=== PATIENT | female | born 1955 | race American Indian/Alaskan Native ===

== ENCOUNTER 2017-10-26 09:45 | Outpatient (CLI) | payer BC ==
--- NOTE | 2017-10-26 15:23 | Mammography Report ---
BILATERAL DIGITAL SCREENING MAMMOGRAM with CAD: 10/26/17 09:45:00 CLINICAL: Routine screening. COMPARISON:04/01/16 FINDINGS: The breasts are heterogeneously dense, which may obscure small masses. No mass, architectural distortion or suspicious calcifications. IMPRESSION: No mammographic evidence of malignancy. BI-RADS CATEGORY: 1 - - Negative RECOMMENDATION: Routine mammographic screening in one year. COMMENT: Patient follow-up letters are generated by our [employer] application.
--- NOTE | 2017-10-26 17:33 | Ultrasound Report ---
FINAL REPORT PROCEDURE: US PELVIC COMPLETE TECHNIQUE: Real-time transabdominal sonography in multiple planes of the pelvis was performed. The pelvic structures, especially the ovaries were not optimally visualized. Transvaginal sonography was then performed to better evaluate the structures and/or abnormalities described below with image documentation. Limited Doppler evaluation of the ovaries/adnexa. CPT 80941 and 12581 HISTORY: Pelvic mass. COMPARISON: No prior studies are available for comparison. FINDINGS: UTERUS Hysterectomy. RIGHT Ovary: 3.1 x 0.9 x 2.6 cm. Appearance: Normal flow. LEFT Ovary: Not seen. Pelvic fluid: None. Other: None. IMPRESSION: Hysterectomy. Left ovary not seen. No mass seen in the region of the left adnexa. Consider CT scan if there is continued clinical concern for left pelvic mass.
--- NOTE | 2017-10-26 17:34 | Ultrasound Report ---
FINAL REPORT PROCEDURE: US PELVIC COMPLETE TECHNIQUE: Real-time transabdominal sonography in multiple planes of the pelvis was performed. The pelvic structures, especially the ovaries were not optimally visualized. Transvaginal sonography was then performed to better evaluate the structures and/or abnormalities described below with image documentation. Limited Doppler evaluation of the ovaries/adnexa. CPT 89708 and 68964 HISTORY: Pelvic mass. COMPARISON: No prior studies are available for comparison. FINDINGS: UTERUS Hysterectomy. RIGHT Ovary: 3.1 x 0.9 x 2.6 cm. Appearance: Normal flow. LEFT Ovary: Not seen. Pelvic fluid: None. Other: None. IMPRESSION: Hysterectomy. Left ovary not seen. No mass seen in the region of the left adnexa. Consider CT scan if there is continued clinical concern for left pelvic mass.
== END 2017-10-26 09:46 | disposition home or self-care (01) ==
LOC: US 09:45
PROVIDERS: ATTEND Obstetrics & Gynecology
DX: Z12.31 Encounter for screening mammogram for malignant neoplasm of breast (principal); R19.04 Left lower quadrant abdominal swelling, mass and lump; Z90.710 Acquired absence of both cervix and uterus
CPT/HCPCS: 76830; 76856; G0202; 77067

== ENCOUNTER 2017-12-27 08:40 | Day surgery (SDC) | payer BC ==
[2017-12-27] MEDS ORDERED: WATER FOR IRRIG STERILE ONE (09:22)
[2017-12-27] MEDS ORDERED: WATER FOR IRRIG STERILE IR ONE (09:22)
--- NOTE | 2017-12-27 09:31 | Anesthesia Consultation ---
Anesthesia Consult and Med Hx Date of service: 12/27/17 - Airway Anesthetic Teeth Evaluation: Good ROM Head & Neck: Adequate Mental/Hyoid Distance: Adequate Mallampati Class: Class III Intubation Access Assessment: Probably Good - Pulmonary Exam CTA: Yes - Cardiac Exam Cardiac Exam: No Murmur (MVP) - Pre-Operative Health Status ASA Pre-Surgery Classification: ASA1 Proposed Anesthetic Plan: MAC - Pulmonary Hx Smoking: No Hx Asthma: No Hx Respiratory Symptoms: No SOB: No COPD: No Home Oxygen Therapy: No Hx Pneumonia: No Hx Sleep Apnea: No - Cardiovascular System Hx Hypertension: No Hx Coronary Artery Disease: No Hx Heart Attack/AMI: No Hx Angina: No Hx Percutaneous Transluminal Coronary Angioplasty (PTCA): No Hx Cardia Arrhythmia: No Hx Pacemaker: No Hx Internal Defibrillator: No Hx Valvular Heart Disease: No Hx Heart Murmur: Yes Hx Peripheral Vascular Disease: No - Central Nervous System Hx Neuromuscular Disorder: No Hx Seizures: No CVA: No Hx Back Pain: No Hx Psychiatric Problems: No - Gastrointestinal Hx Ulcer: No Hx Gastroesophageal Reflux Disease: No - Endocrine Hx Renal Disease: No Hx End Stage Renal Disease: No Hx Cirrhosis: No Hx Liver Disease: No Hx Insulin Dependent Diabetes: No Hx Non-Insulin Dependent Diabetes: No Hx Thyroid Disease: No Hx Hypothyroidism: No Hx Hyperthyroidism: No - Hematic Hx Anemia: No Hx Sickle Cell Disease: No - Other Systems Hx Alcohol Use: No Hx Substance Use: No Hx Cancer: No Hx Obesity: No
--- NOTE | 2017-12-27 09:32 | Anesthesia Day of Surgery ---
Anesthesia Day of Surgery - Day of Surgery Patient Examined: Yes Patient H&P Reviewed: Yes Patient is NPO: Yes Beta Blockers: No Cardiac Clearance: No (NA) Pulmonary Clearance: No (NA)
[2017-12-27] MEDS ORDERED: NACL 0.9% 1000 ML 1,000 ML IV SCH (10:00)
[2017-12-27] MEDS ORDERED: DIPRIVAN 10 MG/ML IV ONE ×2 (11:01)
[2017-12-27] MEDS ORDERED: XYLOCAINE 2% INFILTRATI ONE (11:02)
--- NOTE | 2017-12-27 12:29 | Short Stay Summary ---
Short Stay Documentation Date of service: 12/27/17 Narrative H&P: Pt here for screening colonoscopy. BMs regular, no abd pain, GI bleed, weight loss. - History Past Medical History: No medical history Past Surgical History: hysterectomy Social history: no smoking, no alcohol abuse - Allergies and Medications Current Medications: Allergies No Known Allergies Allergy (Verified 12/22/17 13:56) Home Medications Medication Instructions Recorded Confirmed Last Taken Type No Known Home Medications [No 12/22/17 12/22/17 Unknown History Reported Home Medications] Active Medications Sodium Chloride (Nacl 0.9% 1000 Ml) 1,000 mls @ 50 mls/hr IV DIRECT RANDY Last Admin: 12/27/17 09:33 Dose: 50 mls/hr - Physical exam General appearance: no acute distress HEENT: PERRLA, EOMI Lungs: Clear to auscultation Heart: Regular rate, Normal S1, Normal S2 Gastrointestinal: normal, normoactive bowel sounds - Brief post op/procedure progress note Date of procedure: 12/27/17 Pre-op diagnosis: Screening Post-op diagnosis: other (Colon polyps, diverticulosis) Procedure: Colonoscopy with hot biopsy polypectomy Anesthesia: MAC Findings: 1. Asc colon polyp - hot snared. 2. Splenic flexure polyp - hot snared. 3. Diverticulosis throughout the colon. 4. Hemorrhoids. Surgeon: WARNER PRADO Estimated blood loss: none Pathology: list (1. Ascending colon polyp, 2. Splenic flexure polyp) Specimen disposition: to lab Condition: stable Short Stay Discharge Plan Activity: no restrictions Diet: regular Follow up with: NII BENNETT MD [Primary Care Provider] - 7 Days
--- NOTE | 2017-12-27 13:02 | Operative Report ---
PROCEDURE PERFORMED: Colonoscopy with hot snare polypectomy. PREOPERATIVE DIAGNOSIS: Screening. POSTOPERATIVE DIAGNOSES: Colon polyps and diverticulosis. SEDATION: MAC by Anesthesia. HISTORY: The patient is a 62-year-old woman who presents for screening colonoscopy. Procedure, indications, risks, and benefits were explained and consent was obtained. The patient was placed in left lateral decubitus position and sedated. [employer] video colonoscope was passed through the rectum after digital examination and passed with moderate difficulty to the cecum, which was identified by the ileocecal valve and the appendiceal orifice. Scope was then gradually withdrawn with close inspection of the mucosa. Prep was good. FINDINGS: 1. A 5 mm proximal ascending colon polyp -- removed with hot snare polypectomy. This was sessile. 2. An 8 mm sessile splenic flexure polyp -- removed with hot snare polypectomy. 3. Moderate diverticulosis noted scattered throughout the colon, but especially in the ascending colon and the sigmoid colon. 4. Moderate hemorrhoids on retroflexion. 5. Remainder of visualized colonic mucosa is normal appearing with no evidence of mass lesions, vascular lesions, or inflammation. The patient tolerated the procedure well without immediate complication. IMPRESSION: 1. Diverticulosis. 2. Colon polyps -- removed with hot snare polypectomy. 3. Hemorrhoids. PLAN: 1. Follow up biopsies. 2. Repeat colonoscopy in 5 years if polyps are adenomatous. [facility]# [id number] HRC/NTS
[2017-12-27 13:24] VITALS: BP 146/80
== END 2017-12-27 08:41 | disposition home or self-care (01) ==
LOC: GIO 08:40
PROVIDERS: ATTEND Internal Medicine Gastroenterology
DX: Z12.11 Encounter for screening for malignant neoplasm of colon (principal); D12.2 Benign neoplasm of ascending colon; D12.3 Benign neoplasm of transverse colon; K57.30 Diverticulosis of large intestine without perforation or abscess without bleeding; K64.8 Other hemorrhoids; Z90.710 Acquired absence of both cervix and uterus
CPT/HCPCS: 45385; 88305; J2704; J7030

== ENCOUNTER 2018-03-17 12:54 | Outpatient (CLI) | payer BC ==
--- NOTE | 2018-03-18 09:12 | XRay Report ---
BILATERAL FEET RADIOGRAPHS INDICATION: Other hammer toes, acquired unspecified foot. COMPARISON: None similar. FINDINGS: AP, lateral and oblique radiographs of both feet demonstrate grossly intact bones, joints and soft tissues. Calcaneal degenerative spurring noted, dorsal more than plantar. CONCLUSION: No acute radiographic abnormality, as described. Thank you for the opportunity to participate in this patient's care.
== END 2018-03-17 12:55 | disposition home or self-care (01) ==
LOC: XRAY 12:54
PROVIDERS: ATTEND Podiatrist Foot & Ankle Surgery
DX: M20.40 Other hammer toe(s) (acquired), unspecified foot (principal); M77.32 Calcaneal spur, left foot; M77.31 Calcaneal spur, right foot

== ENCOUNTER 2018-05-29 11:21 | Outpatient (CLI) | payer BC ==
[2018-05-29 12:19] LABS: Hematocrit 38.1 % (30.3-42.9); Mean Corpuscular HGB Conc 31 % (30-34); Mean Corpuscular Volume 72 fl (79-97); Platelet Count 217 K/mm3 (140-440); Red Blood Count 5.27 M/mm3 (3.65-5.03); Red Cell Distribution Width 15.3 % (13.2-15.2)
[2018-05-29 12:24] LABS: Mean Corpuscular Hemoglobin 23 pg (28-32)
[2018-05-29 13:15] LABS: Alanine Aminotransferase 13 units/L (7-56); BUN/Creatinine Ratio 24; Blood Urea Nitrogen 12 mg/dL (7-17); Calcium 9.5 mg/dL (8.4-10.2); Chol/HDL Ratio 2.85 %; HDL Cholesterol 48 mg/dL (40-59); Hemolysis Index 2; LDL Cholesterol,Direct 87 mg/dL (50-130)
== END 2018-05-29 11:22 | disposition home or self-care (01) ==
LOC: LAB 11:21
PROVIDERS: ATTEND Obstetrics & Gynecology
DX: Z13.1 Encounter for screening for diabetes mellitus (principal); M19.90 Unspecified osteoarthritis, unspecified site; Z90.710 Acquired absence of both cervix and uterus
CPT/HCPCS: 36415; 80053; 80061; 82306; 83036; 84443; 85027

== ENCOUNTER 2019-01-24 12:44 | Outpatient (CLI) | payer BC ==
--- NOTE | 2019-01-24 13:50 | XRay Report ---
CERVICAL SPINE RADIOGRAPHS INDICATION: Cervicalgia. COMPARISON: None similar. FINDINGS: AP, lateral, oblique, open-mouth and swimmer's view to evaluate the cervical spine, 6 images demonstrate normal image dens with symmetric lateral masses. Few small radiopaque dental fillings. Intact craniocervical articulation on the lateral view with visualization up to C7-T1 disc. Multilevel degenerative spurring noted from C3 inferiorly with greatest bridging anteriorly from C4-C7. Bilateral C2-C3 and C3-C4 neural foraminal narrowing also suspected. Grossly preserved disc heights. Osteopenia/osteoporosis. Normal prevertebral soft tissues and airway. Approximately 4 mm right apical calcified granuloma. Thoracic spondylosis as well. CONCLUSION: Various degenerative changes noted, as detailed above. Thank you for the opportunity to participate in this patient's care.
== END 2019-01-24 12:45 | disposition home or self-care (01) ==
LOC: XRAY 12:44
PROVIDERS: ATTEND Internal Medicine
DX: M47.812 Spondylosis without myelopathy or radiculopathy, cervical region (principal); M19.90 Unspecified osteoarthritis, unspecified site; Z90.710 Acquired absence of both cervix and uterus
CPT/HCPCS: 72050

== ENCOUNTER 2020-08-26 14:18 | Outpatient (CLI) | payer BC ==
--- NOTE | 2020-08-26 16:15 | Ultrasound Report ---
BILATERAL DIGITAL DIAGNOSTIC MAMMOGRAM WITH CAD 08/26/2020 RIGHT LIMITED BREAST ULTRASOUND INDICATION: UNSPECIFIED LUMP IN RIGHT BREAST TECHNIQUE: Digital bilateral mammographic imaging was performed. Spot compression views were obtaine d. Limited ultrasound was performed. This examination was interpreted with the benefit of Computer- ded Detection (CAD) analysis. COMPARISON: 12/12/2014 through 10/26/2017. FINDINGS: Breast Density: The breasts are heterogeneously dense, which may obscure small masses. MAMMOGRAPHIC FINDINGS: There is no evidence of dominant mass, suspicious calcifications or architectu ral distortion in the left breast. There is a 1.8 cm ill-defined mass in the right superior breast ne ar the 12:00 position in the posterior depth at the site of the palpable abnormality. ULTRASOUND FINDINGS: Targeted ultrasound evaluation was performed of the area of interest. There is a 2 cm irregular hypoechoic solid mass at the 12:00 position 6 cm from the nipple which corresponds to the site of the palpable and mammographic abnormalities. There is an enlarged lymph node in the right axilla. The lymph node measures 1.5 cm short axis and merchant s a significantly thickened cortex with an absent fatty hilum. IMPRESSION: 1. 2 cm irregular solid mass in the right superior breast at the site of the palpable abnormality is highly suggestive of malignancy. 2. Enlarged right axillary lymph node is suspicious for metastatic disease. Follow up recommendation: Routine yearly A "normal" or negative report should not discourage follow up or biopsy of a clinically significant f inding. A written summary of these findings will be mailed to the patient. The patient will be entered into a mammography reporting system which will generate a reminder letter for the patient's next appointmen t at the appropriate interval. According to the [employer], yearly mammograms are recommended starting at age 40 and continuing as long as a woman is in good health. Breast MRI is recommended for women with an boyd roximately 20-25% or greater lifetime risk of breast cancer, including women with a strong family his tory of breast or ovarian cancer and women who have been treated for Hodgkin's disease. Signer Name: Valerio Alex MD Signed: 08/26/2020 4:10 PM Workstation Name: [id number]
== END 2020-08-26 14:19 | disposition home or self-care (01) ==
LOC: SPVWC 14:18
PROVIDERS: ATTEND Surgery
DX: N63.41 Unspecified lump in right breast, subareolar (principal); N64.4 Mastodynia; R59.0 Localized enlarged lymph nodes
CPT/HCPCS: 77066

== ENCOUNTER 2020-09-03 10:03 | Outpatient (CLI) | payer BC ==
--- NOTE | 2020-09-03 11:57 | Mammography Report ---
RIGHT DIAGNOSTIC MAMMOGRAM INDICATION: Right breast mass status post ultrasound-guided biopsy. COMPARISON: 08/26/2020. FINDINGS: Right breast CC and LM mammograms were obtained. These document location of a U-shaped biop sy marker at the site of previously noted mammographic mass. IMPRESSION: Right breast mammograms documenting location of U shaped biopsy marker at the site of previously note d right breast 12:00 mass. BI-RADS Category 4: Suspicious for Malignancy. Signer Name: David Santoro MD Signed: 09/03/2020 11:52 AM Workstation Name: [id number]
--- NOTE | 2020-09-04 09:00 | Ultrasound Report ---
ULTRASOUND-GUIDED CORE NEEDLE BIOPSY Right BREAST WITH CLIP PLACEMENT INDICATION: Right breast mass FINDINGS: Informed consent was obtained. The mass in the right breast at the 12:00 position, 6 cm from the nipp le, was identified with ultrasound. The overlying skin was cleansed with chloro prep and local anesth esia was obtained with a 1% lidocaine solution. Under ultrasound guidance a 14-gauge spring loaded co re biopsy needle was advanced to the lesion. A total of 4 core samples were obtained. A biopsy marker was placed to rosy the site of the biopsy. Specimen samples were placed in formalin and sent to path ogy for analysis. Patient tolerated the procedure well and no immediate complications were identified. IMPRESSION: Technically successful ultrasound-guided core biopsy of right breast mass at the 12:00 position with placement of a U-shaped biopsy marker. An addendum will be added to this report once pathology results are available. Signer Name: David Santoro MD Signed: 09/03/2020 11:50 AM Workstation Name: [id number]
--- NOTE | 2020-09-04 09:00 | Ultrasound Report ---
ULTRASOUND-GUIDED CORE NEEDLE BIOPSY Right AXILLARY NODE WITH CLIP PLACEMENT INDICATION: Abnormal right axillary lymph node. COMPARISON: 08/26/2020. FINDINGS: Informed consent was obtained. The abnormal lymph node in the right axilla was identified with ultras ound. The overlying skin was cleansed with chloro prep and local anesthesia was obtained with a 1% li docaine solution. Under ultrasound guidance an 18-gauge spring loaded core biopsy needle was advanced to the lesion. A total of 3 core samples were obtained. A U-shaped biopsy biopsy marker was placed t o rosy the site of the biopsy. Specimen samples were placed in formalin and sent to pathology for lenin lysis. Patient tolerated the procedure well and no immediate complications were identified. The biopsy marke r appears appropriately positioned under ultrasound. IMPRESSION: Technically successful ultrasound guided core biopsy of right axillary lymph node with accurate place ment of a U-shaped biopsy marker. An addendum will be added to this report once pathology results are available. Signer Name: David Santoro MD Signed: 09/03/2020 12:04 PM Workstation Name: [id number]
== END 2020-09-03 10:04 | disposition home or self-care (01) ==
LOC: SPVWC 10:03
PROVIDERS: ATTEND Surgery
DX: N63.12 Unspecified lump in the right breast, upper inner quadrant (principal); I89.8 Other specified noninfective disorders of lymphatic vessels and lymph nodes; M19.90 Unspecified osteoarthritis, unspecified site; Z98.890 Other specified postprocedural states; Z90.710 Acquired absence of both cervix and uterus
CPT/HCPCS: 38505; 76942; 88305; 88341; 88342

== ENCOUNTER 2020-09-17 14:05 | Outpatient (CLI) | payer BC ==
[2020-09-17 15:03] LABS: Basophils % (Auto) 0.5 % (0.0-1.8); Eosinophils # (Auto) 0.1 K/mm3 (0.0-0.4); Eosinophils % (Auto) 2.2 % (0.0-4.3); Hematocrit 37.7 % (30.3-42.9); Hemoglobin 11.6 gm/dl (10.1-14.3); Lymphocytes # (Auto) 1.5 K/mm3 (1.2-5.4); Lymphocytes % (Auto) 24.5 % (13.4-35.0); Mean Corpuscular HGB Conc 31 % (30-34); Mean Corpuscular Volume 73 fl (79-97); Monocytes # (Auto) 0.6 K/mm3 (0.0-0.8); Monocytes % (Auto) 9.7 % (0.0-7.3); Platelet Count 209 K/mm3 (140-440); Red Blood Count 5.17 M/mm3 (3.65-5.03); Red Cell Distribution Width 15.1 % (13.2-15.2)
[2020-09-17 15:13] LABS: Alanine Aminotransferase 16 units/L (7-56); Blood Urea Nitrogen 11 mg/dL (7-17); Calcium 9.8 mg/dL (8.4-10.2); Hemolysis Index 25
[2020-09-17 15:20] LABS: BUN/Creatinine Ratio 18
== END 2020-09-17 14:06 | disposition home or self-care (01) ==
LOC: LAB 14:05
PROVIDERS: ATTEND Internal Medicine Hematology & Oncology
DX: C50.411 Malignant neoplasm of upper-outer quadrant of right female breast (principal)
CPT/HCPCS: 36415; 80053; 85025; 86300

== ENCOUNTER 2020-09-24 08:46 | Outpatient (CLI) | payer BC ==
--- NOTE | 2020-09-24 10:23 | Magnetic Resonance Report ---
Bilateral breast MR without and with contrast. History: Recently diagnosed right breast cancer with armando disease in the right axilla. Assess extent of disease. Comparison: 08/26/2020, 09/03/2020. Technique: Multiplanar multisequence MR images of the breast were obtained before and after the intra venous administration of 16 mL of MultiHance intravenous contrast. Post processing analysis and revie w was performed on a separate computer workstation. Findings: Breast composition is heterogenously dense. There is mild background parenchymal enhancement bilatera lly. RIGHT BREAST: Located within the posterior right breast at the 12:00 position is a 3.1 x 1.9 x 2.6 cm solid slightly lobulated enhancing mass. This represents a known biopsy-proven invasive carcinoma wi th ductal and lobular features. A biopsy marker is noted within the lateral portion of the mass. No e vidence of pectoralis muscle invasion or skin invasion. No additional suspicious findings are identi fied within the right breast. LEFT BREAST: No discrete enhancing mass, dominant focus, or other abnormal enhancement is identified within the left breast. Enlarged right axillary lymph node measures up to 2 x 1.3 cm. A biopsy marker is noted within this ly mph node which was biopsied and found to represent metastatic disease. No abnormal left axillary or i nternal mammary lymph nodes. Located within the posterior left hepatic lobe is a 1.2 cm partially circumscribed slightly lobulated T2 hyperintense lesion. This may represent a cyst, but is not fully characterized on the current exa m. There is cardiomegaly with particular enlargement of the right side of the heart. Impression: 1. Known biopsy-proven malignancy in the right breast at the 12:00 posterior position measures up to 3.1 cm on MRI with associated biopsy marker noted. No additional suspicious findings within either br east to suggest further or additional extent of disease. 2. Enlarged right axillary lymph node consistent with known biopsy-proven armando disease in the right axilla. 3. A 1.2 cm lesion within the posterior left hepatic lobe is noted. This demonstrates fluid like sig nal and may represent a cyst. It is not fully characterized on the current exam and dedicated CT live r or MRI is recommended. 4. Cardiomegaly with particular enlargement of the right side of the heart. BIRADS 6: Known biopsy proven malignancy. Signer Name: David Santoro MD Signed: 09/24/2020 10:23 AM Workstation Name: [id number]
== END 2020-09-24 08:47 | disposition home or self-care (01) ==
LOC: SPVIMAG 08:46
PROVIDERS: ATTEND Surgery
DX: C50.411 Malignant neoplasm of upper-outer quadrant of right female breast (principal); I51.7 Cardiomegaly; N63.41 Unspecified lump in right breast, subareolar
CPT/HCPCS: A9577; C8908; 77049

== ENCOUNTER 2020-09-25 08:22 | Outpatient (CLI) | payer BC, MEDICARE ==
--- NOTE | 2020-09-25 14:24 | PET Report ---
PET-CT SCAN INDICATION / CLINICAL INFORMATION: C50.411. STAGING: Initial Staging TECHNIQUE: Tumor imaging, positron emission tomography (PET) with concurrently acquired computed tomography (CT) for attenuation correction and anatomical localization; Skull Base to Mid Thigh - DOSE: 11.6 mCi F-18 FDG was administered IV per protocol in the - GLUCOSE: 85 mg/dL - UPTAKE TIME: PET scan performed approximately 60 minutes after radiotracer administration. - CT SCAN DESCRIPTION: No oral or IV contrast. All CT scans at this location are performed using CT d ose reduction for ALARA by means of automated exposure control. COMPARISON: MRI of the breasts dated 09/24/2020. FINDINGS: HEAD / NECK: No abnormal radiotracer uptake in the neck. No significant CT abnormality. CHEST: Biopsy-proven malignancy in the right breast is hypermetabolic (maximum SUV measures 4.8). Add itional biopsy proven metastatic right axillary lymph node is also hypermetabolic (maximum SUV is 7.5 ). No additional abnormalities tracer uptake in the chest. No significant CT abnormality. ABDOMEN / PELVIS: No abnormal radiotracer uptake in the abdomen. 1.2 cm posterior left hepatic lesion is not well visualized on unenhanced CT. No increased radiotracer uptake is identified in this regio n. LOWER EXTREMITIES: No abnormal radiotracer uptake in the visualized lower extremities. No significant CT abnormality. SKELETAL STRUCTURES: No hypermetabolic bone lesions. No significant CT abnormality. ADDITIONAL FINDINGS: No additional significant findings. IMPRESSION: 1. Biopsy-proven malignancy and right axillary armando metastatic disease are confirmed to be hyper met abolic. 2. Otherwise negative PET. No additional areas of radiotracer uptake identified. 3. 1.2 cm posterior left hepatic lesion is not well seen on today's study. No increased radiotracer u ptake is identified in this region, though findings in the liver may be obscured by physiologic activ ity. Further evaluation with MRI is recommended. Signer Name: Nelson Kramer MD Signed: 09/25/2020 2:19 PM Workstation Name: [email or web address]
== END 2020-09-25 08:23 | disposition home or self-care (01) ==
LOC: PET 08:22
PROVIDERS: ATTEND Internal Medicine Hematology & Oncology
DX: C50.411 Malignant neoplasm of upper-outer quadrant of right female breast (principal)
CPT/HCPCS: 78815; A9552

== ENCOUNTER 2020-10-07 07:55 | Outpatient (CLI) | payer BC, MEDICARE ==
--- NOTE | 2020-10-07 10:12 | Magnetic Resonance Report ---
MRI ABDOMEN WITHOUT AND WITH CONTRAST INDICATION / CLINICAL INFORMATION: LEFT LIVER CYST. TECHNIQUE: Multiplanar, multisequence series were obtained through the abdomen. 15 cc of MultiHance was administ ered intravenously for postcontrast imaging. COMPARISON: PET/CT dated 09/25/2020 FINDINGS: There is moderate breathing motion artifact which limits many of the sequences. LIVER: The liver is normal size, contour and signal. No significant parenchymal disease or suspicious liver lesion is identified. A 1 cm cyst is identified high in the left hepatic lobe. A 1.4 cm cyst i s seen in the inferior tip of the right hepatic lobe. GALLBLADDER: No significant abnormality. BILE DUCTS: No significant abnormality. PANCREAS: No significant abnormality. SPLEEN: No significant abnormality. ADRENALS: No significant abnormality. RIGHT KIDNEY AND URETER: No significant abnormality. LEFT KIDNEY AND URETER: A 2.8 cm simple cyst is seen at the superior pole. A 1.1 cm cyst is seen at m id pole. The left kidney and collecting system are unremarkable otherwise. STOMACH AND VISUALIZED BOWEL: No significant abnormality. PERITONEUM: No free fluid. No free air. No fluid collection. LYMPH NODES: No significant adenopathy. AORTA and ARTERIES: No significant abnormality. IVC and VEINS: No significant abnormality. ADDITIONAL FINDINGS: None. SKELETAL SYSTEM: No significant abnormality. IMPRESSION: Liver and left renal cysts as described. No acute process or evidence for metastatic disease to the abdomen. Signer Name: Bob Rausch Jr, MD Signed: 10/07/2020 10:08 AM Workstation Name: [id number]
== END 2020-10-07 07:56 | disposition home or self-care (01) ==
LOC: MRI 07:55
PROVIDERS: ATTEND Surgery
DX: N28.1 Cyst of kidney, acquired (principal); K76.89 Other specified diseases of liver; R92.8 Other abnormal and inconclusive findings on diagnostic imaging of breast
CPT/HCPCS: 74183; A9577

== ENCOUNTER 2020-10-22 06:17 | Outpatient (CLI) | payer BC, MEDICARE ==
--- NOTE | 2020-10-22 09:23 | Magnetic Resonance Report ---
MR PELVIS WITH AND WITHOUT CONTRAST HISTORY: Genetic susceptibility malignant neoplasm of ovary TECHNIQUE: Multisequence, multiplanar MRI before and after IV gadolinium. COMPARISON: PET/CT dated 09/25/2020. Pelvic ultrasound dated 10/26/2017. FINDINGS: The uterus is surgically absent. The vaginal cuff is unremarkable. I believe I see both ovaries which are normal size and contour. There is no evidence for suspicious ovarian mass, cystic disease, pelvi c adenopathy or fluid collection. The bladder and distal ureters are unremarkable. Visualized bowel l oops in the pelvis are within normal limits. Normal bone marrow signal in the visualized osseous stru ctures. No abnormal enhancement is appreciated following IV gadolinium. IMPRESSION: Hysterectomy. I believe I see both ovaries which are unremarkable. No suspicious pelvic mass or adeno aisha. Signer Name: Bob Rausch Jr, MD Signed: 10/22/2020 9:18 AM Workstation Name: [id number]
== END 2020-10-22 06:18 | disposition home or self-care (01) ==
LOC: MRI 06:17
PROVIDERS: ATTEND Obstetrics & Gynecology
DX: Z15.02 Genetic susceptibility to malignant neoplasm of ovary (principal); Z90.710 Acquired absence of both cervix and uterus
CPT/HCPCS: 72197; A9575

== ENCOUNTER 2020-11-05 09:39 | Outpatient (CLI) | payer BC, MEDICARE ==
--- NOTE | 2020-11-05 12:33 | Mammography Report ---
DEXA BONE DENSITY SCAN INDICATION: Z13.280 SCREENING FOR OSTEO. History of right breast carcinoma COMPARISON: None available. LUMBAR SPINE (L1-L4): Bone mineral density (BMD) is 0.855 g/cm2. T-score is -1.7 (standard deviations of Young Adult mean). Z-score is -0.6 (standard deviations of Age Matched mean). RIGHT FEMORAL NECK: Bone mineral density (BMD) is 0.657 g/cm2. T-score is -1.7 (standard deviations of Young Adult mean). Z-score is -0.8 (standard deviations of Age Matched mean). IMPRESSION: 1. WHO Classification: Osteopenia. Fracture Risk: Increased. Signer Name: Wanda Sparrow MD Signed: 11/05/2020 12:29 PM Workstation Name: [id number]
== END 2020-11-05 09:40 | disposition home or self-care (01) ==
LOC: MAMMO 09:39
PROVIDERS: ATTEND Internal Medicine
DX: J01.00 Acute maxillary sinusitis, unspecified (principal)
CPT/HCPCS: 77080

== ENCOUNTER 2020-12-10 09:21 | Observation (INO) | payer BC, MEDICARE ==
[2020-12-05 09:15] LABS: Hematocrit 36.3 % (30.3-42.9); Hemoglobin 11.7 gm/dl (10.1-14.3); Mean Corpuscular HGB Conc 32 % (30-34); Mean Corpuscular Volume 72 fl (79-97); Platelet Count 219 K/mm3 (140-440); Red Blood Count 5.05 M/mm3 (3.65-5.03); Red Cell Distribution Width 15.3 % (13.2-15.2)
[2020-12-05 09:27] LABS: Blood Urea Nitrogen 11 mg/dL (7-17); Calcium 9.4 mg/dL (8.4-10.2); Hemolysis Index 0
[2020-12-05 09:28] LABS: BUN/Creatinine Ratio 18
--- NOTE | 2020-12-05 10:18 | Anesthesia Consultation ---
Anesthesia Consult and Med Hx Date of service: 12/10/20 - Airway Anesthetic Teeth Evaluation: Crowns, Bridges ROM Head & Neck: Inadequate (Decreased neck ROM-? HNP) Mental/Hyoid Distance: Adequate Mallampati Class: Class II Intubation Access Assessment: Probably Good - Pre-Operative Health Status ASA Pre-Surgery Classification: ASA2 Proposed Anesthetic Plan: General Nerve Block: ES/PECS - Pulmonary Hx Smoking: No Hx Asthma: No Hx Respiratory Symptoms: No (+2FS) SOB: No COPD: No Hx Pneumonia: No Hx Sleep Apnea: No - Cardiovascular System Hx Hypertension: No (ETT 7 years ago) Hx Coronary Artery Disease: No Hx Heart Attack/AMI: No Hx Angina: No Hx Percutaneous Transluminal Coronary Angioplasty (PTCA): No Hx Cardia Arrhythmia: No Hx Pacemaker: No Hx Internal Defibrillator: No Hx Valvular Heart Disease: Yes (MVP) Hx Heart Murmur: Yes Hx Peripheral Vascular Disease: No - Central Nervous System Hx Neuromuscular Disorder: No Hx Seizures: No CVA: No Hx Back Pain: No Hx Psychiatric Problems: No - Gastrointestinal Hx Ulcer: No Hx Gastroesophageal Reflux Disease: Yes - Endocrine Hx Renal Disease: No Hx End Stage Renal Disease: No Hx Cirrhosis: No Hx Liver Disease: No Hx Insulin Dependent Diabetes: No Hx Non-Insulin Dependent Diabetes: No Hx Thyroid Disease: No Hx Hypothyroidism: No Hx Hyperthyroidism: No - Hematic Hx Anemia: No Hx Sickle Cell Disease: No - Other Systems Hx Alcohol Use: No Hx Substance Use: No Hx Cancer: Yes Hx Obesity: No
--- NOTE | 2020-12-05 12:16 | XRay Report ---
CHEST 2 VIEWS INDICATION / CLINICAL INFORMATION: Pre Operative. COMPARISON: None available. FINDINGS: SUPPORT DEVICES: None. HEART / MEDIASTINUM: No significant abnormality. LUNGS / PLEURA: No significant pulmonary or pleural abnormality. No pneumothorax. ADDITIONAL FINDINGS: No significant additional findings. IMPRESSION: No acute cardiopulmonary abnormality. Signer Name: Jalen Boss MD Signed: 12/05/2020 12:12 PM Workstation Name: [id number]
[~2020-12-10 09:21] MED LIST: ACETAMINOPHEN 325 MG TAB PO ONE; BACITRACIN 50,000 UNIT VIAL IR ONE; CELECOXIB 200 MG CAP PO NR; FAMOTIDINE 20 MG TAB PO NR; GABAPENTIN 300 MG CAP PO NR; GENTAMICIN 40 MG/ML VIAL 2 ML IV ONE; LACTATED RINGERS 1,000 ML IV SCH; MAGNESIUM OXIDE 400 MG TAB PO ONE; MIDAZOLAM 2 MG/2 ML INJ IV NR; SCOPOLAMINE TRANSDERMAL PATCH 72 HR TD NR; SODIUM CHLORIDE 0.9% IRR 1,500 ML BOTTLE IR ONE; WATER FOR IRRIG STERILE 1,500 ML BOTTLE IR ONE; ceFAZolin 1 GM VIAL IV ONE; ceFAZolin/Water 2 GM/20 ML 2 GM/20 ML SYRINGE IV NR; fentaNYL 100 MCG/2 ML INJ IV ONE
[2020-12-10] MEDS ORDERED: ACETAMINOPHEN 325 MG TAB ONE (09:41)
[2020-12-10] MEDS ORDERED: dexAMETHasone 4 MG/ML VIAL ONE (09:57)
[2020-12-10] MEDS ORDERED: SODIUM CHLORIDE P/F VIAL 10 ML 40 ML ONE (09:57)
[2020-12-10] MEDS ORDERED: BUPIVACAINE-EPINEPHRINE/PF 0.5%-1:200,000 (30 ML) VIAL INFILTRATI ONE (09:57)
[2020-12-10] MEDS ORDERED: fentaNYL 100 MCG/2 ML INJ ONE ×3 (09:57→13:22)
[2020-12-10] MEDS ORDERED: MAGNESIUM OXIDE 400 MG TAB PO ONE (09:58)
[2020-12-10] MEDS ORDERED: ceFAZolin 1 GM VIAL ONE (10:53)
[2020-12-10] MEDS ORDERED: BACITRACIN 50,000 UNIT VIAL ONE (10:53)
[2020-12-10] MEDS ORDERED: SODIUM CHLORIDE P/F VIAL 10 ML 30 ML ONE (10:54)
[2020-12-10] MEDS ORDERED: GENTAMICIN 40 MG/ML VIAL 2 ML ONE (10:54)
[2020-12-10] MEDS ORDERED: METHYLENE BLUE 50 MG/10 ML AMP ONE (10:55)
--- NOTE | 2020-12-10 11:16 | Anesthesia Day of Surgery ---
Anesthesia Day of Surgery - Day of Surgery Patient Examined: Yes Patient H&P Reviewed: Yes Patient is NPO: Yes
[2020-12-10] MEDS ORDERED: fentaNYL 100 MCG/2 ML INJ IV PRN (11:18)
[2020-12-10] MEDS ORDERED: ONDANSETRON 4 MG/2 ML INJ IV PRN ×2 (11:18→17:00)
--- NOTE | 2020-12-10 11:18 | Progress Note ---
Regional Anesthesia Block - Regional Anesthesia Block Start Time: 11:03 Stop Time: 11:12 Performed By:: LUIS ENRIQUE MENDEZ Procedure: [Bilateral] Ultrasound Guided PECS Block Pt IDd, consent obtained, time out performed. Pt on monitor + O2 via NC, VS stable, sedation given per pre-op RN. Sterile prep. Landmarks identified with ultrasound. [2]cc skin wheel with 1% lidocaine. Needle advance in plane with ultrasound. [30]cc [0.25]% bupivacaine [w/ epi] + [4]mg decadron injected incrementally with negative aspiration. Procedure repeated on opposite side. Pt tolerated procedure well, no immediate complications noted.
[2020-12-10] MEDS ORDERED: ePHEDrine SULFATE 50 MG/1 ML INJ ONE (11:27)
[2020-12-10] MEDS ORDERED: ROCURONIUM 50 MG/5 ML INJ IV ONE (11:30)
[2020-12-10] MEDS ORDERED: ONDANSETRON 4 MG/2 ML INJ ONE (11:30)
[2020-12-10] MEDS ORDERED: dexAMETHasone 20 MG/5 ML VIAL ONE (11:30)
[2020-12-10] MEDS ORDERED: GLYCOPYRROLATE 0.4 MG/2 ML INJ ONE (11:30)
[2020-12-10] MEDS ORDERED: PHENYLEPHRINE/NS 1,000 MCG/10 ML SYRINGE (OR USE) IV ONE (11:30)
[2020-12-10] MEDS ORDERED: SUCCINYLCHOLINE CHLORIDE 200 MG/10 ML INJ MDV ONE (11:30)
[2020-12-10] MEDS ORDERED: NEOSTIGMINE 10MG/10 ML INJ MDV ONE (11:30)
[2020-12-10] MEDS ORDERED: LIDOCAINE MPF (2%) 20 MG/1 ML VIAL 5 ML ONE (11:30)
[2020-12-10] MEDS ORDERED: propofoL 200 MG/20 ML VIAL IV ONE (11:31)
[2020-12-10] MEDS ORDERED: HYDROmorphone 1 MG/1 ML INJ ONE ×2 (13:24→15:59)
[2020-12-10] MEDS ORDERED: WATER FOR IRRIG STERILE 1,500 ML BOTTLE IR ONE (14:15)
--- NOTE | 2020-12-10 16:00 | Mammography Report ---
Right breast surgical excision INDICATION: Right breast malignancy.. COMPARISON: 09/03/2020. FINDINGS: Single surgical specimen demonstrates a U-shaped biopsy marker located 3.1 cm from the edge of the specimen. IMPRESSION: Single right breast surgical specimen contains a U-shaped biopsy marker. Signer Name: David Santoro MD Signed: 12/10/2020 3:55 PM Workstation Name: [id number]
--- NOTE | 2020-12-10 16:20 | Short Stay Summary ---
Short Stay Documentation Date of service: 12/10/20 - History H&P: obtained from office - Allergies and Medications Current Medications: Allergies clindamycin Adverse Reaction (Verified 12/04/20 15:30) Metallic taste Home Medications Medication Instructions Recorded Confirmed Last Taken Type Ascorbic Acid [Vitamin C] 1,000 mg PO DAILY 12/04/20 12/10/20 12/03/20 09:00 History Ergocalciferol(Vitamin D2)(Nf) 400 unit PO DAILY 12/04/20 12/10/20 12/03/20 09:00 History [Vitamin D (Nf)] Vit C/Vit D3/E/Zinc/Elderberry 1 each PO DAILY 12/04/20 12/10/20 12/03/20 09:00 History [Airborne Elderberry Gummy] Active Medications Celecoxib (Celecoxib 200 Mg Cap) 200 mg PO PREOP NR Stop: 12/10/20 17:00 Last Admin: 12/10/20 10:15 Dose: 200 mg Documented by: Famotidine (Famotidine 20 Mg Tab) 20 mg PO PREOP NR Stop: 12/10/20 17:00 Last Admin: 12/10/20 10:15 Dose: 20 mg Documented by: Fentanyl (Fentanyl 100 Mcg/2 Ml Inj) 50 mcg IV Q5MIN PRN PRN Reason: Pain , Severe (7-10) Stop: 12/11/20 11:17 Gabapentin (Gabapentin 300 Mg Cap) 300 mg PO PREOP NR Stop: 12/10/20 17:00 Last Admin: 12/10/20 10:15 Dose: 300 mg Documented by: Cefazolin Sodium (Ancef/Sterile Water 2 Gm/20 Ml) 2 gm in 20 mls @ 80 mls/hr IV PREOP NR; Protocol Stop: 12/10/20 23:59 Lactated Ringer's (Lactated Ringers) 1,000 mls @ 100 mls/hr IV DIRECT RANDY Last Admin: 12/10/20 10:00 Dose: 100 mls/hr Documented by: Midazolam HCl (Midazolam 2 Mg/2 Ml Inj) 2 mg IV PREOP NR Stop: 12/10/20 23:59 Last Admin: 12/10/20 11:03 Dose: 2 mg Documented by: Ondansetron HCl (Ondansetron 4 Mg/2 Ml Inj) 4 mg IV ONCE PRN PRN Reason: Nausea And Vomiting Scopolamine (Scopolamine Transdermal Patch 72 Hr) 1 each TD PREOP NR Stop: 12/10/20 23:59 Last Admin: 12/10/20 10:21 Dose: 1 each Documented by: - Brief post op/procedure progress note Date of procedure: 12/10/20 Pre-op diagnosis: Right breast cancer upper inner quadrant Post-op diagnosis: same Procedure: Left total mastectomy; right modified radical mastectomy Anesthesia: GETA Findings: Bilateral mastectomy; bulky right axillary lymphadenopathy Surgeon: ROBERT VALENTIN Estimated blood loss: 50-100ml Pathology: list (whitney mastectomy; right ALND) Specimen disposition: to lab Condition: stable - Disposition Condition at discharge: Good Disposition: DC/TX-02 SHRT-TRM GEN HOSP IP Short Stay Discharge Plan Activity: other (no heavy lifting) Diet: regular Wound: keep clean and dry Follow up with: ROBERT VALENTIN MD [Staff Physician] - 7 Days
[2020-12-10] MEDS ORDERED: SODIUM CHLORIDE 0.9% IRR 1,500 ML BOTTLE IR ONE (16:24)
[2020-12-10] MEDS ORDERED: GENTAMICIN 40 MG/ML VIAL 2 ML IV ONE (16:24)
[2020-12-10] MEDS ORDERED: ceFAZolin 1 GM VIAL IV ONE (16:24)
[2020-12-10] MEDS ORDERED: BACITRACIN 50,000 UNIT VIAL IR ONE (16:24)
--- NOTE | 2020-12-10 16:35 | Operative Report ---
Operative Report Operative Report: Date of Service: December 10, 2020 Preoperative diagnosis: Right breast cancer of the upper inner quadrant Postoperative diagnosis: Same Procedure: Right total mastectomy with ALND-right modified radical mastectomy and left total mastectomy Surgeon: Jody Olivier M.D. Pumping Station Supervisor: Roosevelt Dick M.D. Anesthesia: Gen. Findings: Right breast clip present within right total mastectomy; right axillary lymph node dissection with bulky right axillary lymphadenpathy Complications: None Drains: YFN drains bilaterally-placed by plastic surgery Estimated blood loss: 100 cc Disposition: Plastic surgery proceeded with bilateral tissue expanders Indications for operative procedure: This is a 65-year-old lady with stage II right breast cancer of the upper inner quadrant, [id number] ER/ID positive. Patient also RAD51 positive gene mutation. She wished to proceed with a prophylactic bilateral mastectomy. Recommendations were to proceed with an ALND given positive axillary armando metastasis; given high ER/ID positivity recommendations were to proceed with an ALND given probable poor response to neoadjuvant chemotherapy. She has met with radiation oncology and medical oncology and understands the role of possible adjuvant chemoradiation therapy pending pathology. Patient understands the role of BSO given RAD51 positive gene mutation, she met with Recovery Unit Operator oncology as well. She wished to proceed with immediate bilateral tissue splitting machine operator placement. She wished to proceed with the above procedure. Procedure in detail: The patient was taken to the operating room and was placed supine. Gen. anesthesia was administered. Patient with known malignancy right breast 12:30 position 6 cm FN of 2-3 and palpable right axillary lymph node. Bilateral chest and axillas were prepped and draped in the normal sterile operative fashion. Timeout was performed. Typical mastectomy incision markings were made. Ultrasound used as well to rosy area of known right axillary armando metastasis and location of known malignancy. Attention was taken toward the left breast first. First began raising of the superior flap to the level of the clavicle superiorly and posteriorly to the pectoralis muscle. Followed by raising of the medial flap to the level of the sternum and posteriorly to the pectoralis muscle. Followed by raising of the lateral flap to the level of the latissimus dorsi muscle and taken down posteriorly. Followed by raising of the inferior flap to the level of the inframammary fold taken posterior to the pectoralis muscle. The mastectomy/breast was removed from the pectoralis muscle without incident. The specimen was appropriately marked and sent to pathology. Hemostasis was obtained. The port was noted and unharmed. Attention was taken towards the right breast. Skin markings were made to include the area of known cancer. Breast cancer location 12:30 position 6 cm FN with palpable skin thickening. A skin incision was made with a 10 blade knife and dissection taken down to the subcutaneous tissues. First began raising of the superior flap to the level of the clavicle superiorly and posteriorly to the pectoralis muscle. Followed by raising of the medial flap to the level of the sternum and posteriorly to the pectoralis muscle. Followed by raising of the lateral flap to the level of the latissimus dorsi muscle and taken down posteriorly. Then proceeded with raising of the inferior flap to the level of the inframammary fold taken posterior to the pectoralis muscle. The mastectomy/breast was removed from the pectoralis muscle without incident. The specimen was appropriately marked and sent to radiology with findings of breast clip present and sent to pathology. Attention was then taken towards the right axilla. First began opening of the axillary fascia. The lattismus dorsi muscle was identified and followed superiorly. Then proceeded with identification of the axillary vein followed by identification of the thoracodorsal bundle and long thoracic nerve. Axillary lymph nodes were then removed from the above boundaries with the aid of the bovie cautery in a sweeping-like motion and then sent to pathology. Axillary lymph nodes from level I and II were removed. Both nerves were identified and unharmed. Bulky axillary lymphadenopathy was noted. Hemostasis was noted. The chest wall was irrigated and suctioned. Hemostasis was obtained. Plastic surgery then proceeded with placement of bilateral tissue expanders.
[2020-12-10] MEDS ORDERED: METOCLOPRAMIDE 10 MG TAB PO PRN (17:00)
[2020-12-10] MEDS ORDERED: oxyCODONE /ACETAMINOPHEN 5-325MG TAB PO PRN (17:00)
[2020-12-10] MEDS ORDERED: ACETAMINOPHEN 325 MG TAB PO PRN (17:00)
[2020-12-10] MEDS ORDERED: diphenhydrAMINE 25 MG CAP PO PRN (17:00)
[2020-12-10] MEDS ORDERED: HYDROmorphone 2 MG TAB PO PRN (17:00)
--- NOTE | 2020-12-10 18:54 | Operative Report ---
PREOPERATIVE DIAGNOSIS: Personal history of right breast cancer. POSTOPERATIVE DIAGNOSIS: Personal history of right breast cancer. PROCEDURE: Bilateral immediate breast reconstruction with Allergan Natrelle tissue expanders and FlexHD acellular dermal matrix. SURGEON: Dr. Mukesh Phan. INSURANCE EXAMINING CLERK: Dr. Dick. ESTIMATED BLOOD LOSS: 25 mL. DRAINS: YFN x 5 mL. SPECIMENS: None. COMPLICATIONS: None. INDICATIONS: The patient is a 65-year-old woman with right-sided breast cancer. She had presented today for bilateral mastectomy with right axillary node dissection as performed by Dr. Olivier and immediate breast reconstruction was performed by Dr. Mukesh Phan. The nature of the surgery, technical aspects, typical recovery period, and potential risks involved were discussed fully prior to surgery including, but not limited to, postoperative bleeding, infection, pronounced scarring, hematoma or seroma formation, areas of paresthesias, numbness or pain, delayed healing, implant leak, rupture, exposure, need for removal or replacement, asymmetry (expected given [place] degree of asymmetry), capsular contracture, failure to achieve anticipated goals, need for revision or future surgery. She understands the staged nature of the reconstructive efforts and need for subsequent removal of tissue headend technician and replacement with a subsequent implant. Additional procedure such as nipple reconstruction and tattooing were also discussed including alternative options. DESCRIPTION OF PROCEDURE: The patient was already anesthetized, prepped and draped. Dr. Olivier had completed a bilateral mastectomy and right side axillary node dissection. I inspected the flaps and found them to be of adequate thickness and viability. Meticulous hemostasis was achieved on each side with electrocautery. Note that each side was treated identically with the exception of placement of a right-sided axillary drain where the lymph node dissection was placed as well as placement of lateral tacking stitches on the right side with 0 Vicryl in an interrupted mattress manner to compartmentalize the axillary pocket from the breast pocket. The inferior border of each pectoralis major muscle was divided with electrocautery and a subpectoral pocket was developed under direct vision. A medium-sized contoured perforated thick sheet of FlexHD acellular dermal matrix was then oriented and sewn along its inferior border to the chest wall at the inframammary fold level on each side with interrupted 0 PDS sutures. The superior edge was slightly trimmed and sewn to the pectoral major muscle inferior border with interrupted and running 0 Vicryl sutures. An empty [employer]Ye Allergan tissue headend technician [id number] 500 mL tissue headend technician was placed into the subpectoral and sub-ADM pocket. It was completely deflated when it was placed and used the tabs to sew and secure the device down to the chest wall with interrupted Vicryl sutures. Laterally, the pocket was then completely segregated by placement of interrupted 0 Vicryl sutures between the ADM and the chest wall. Note that on the right side, a 7 mm YFN drain was placed into the axilla dissection plane and a 10-[place] YFN drain flat was placed into the deep pocket on each side. Superficially, there was a 7 mm YFN drain placed on each side, superficial to the ADM. All drains exited inferolaterally and were secured with 2-0 silk sutures. Next, after the pockets were irrigated with copious amounts of triple antibiotic solution comprised of Ancef, gentamicin, and bacitracin solution, the closure commenced over the drains as mentioned. 2-0 Vicryl was placed in a running subcutaneous tissue plane, 3-0 Monocryl at the level of the deep dermis in an interrupted manner, and then a running subcuticular 4-0 Monocryl at the level of the skin. Dermabond skin glue was then placed. The flaps appeared very healthy and viable with appropriate bleeding from the edges. Utilizing a closed sterile technique, 180 mL of sterile saline was introduced into each tissue headend technician. There was no undue tension on the closure. The patient tolerated the procedure well and was extubated and transferred to the recovery area in stable condition. JOB# [id number] /MIKA
[2020-12-10] MEDS: LACTATED RINGERS 1,000 ML IV SCH (19:22)
--- NOTE | 2020-12-10 19:49 | Post Anesthesia Evaluation ---
- Post Anesthesia Evaluation Patient Participated: Yes (alert and oriented) Airway Patent: Yes Stable Respiratory Function: Yes Nausea/Vomiting: No Temp > 96.8F: Yes Pain Manageable: Yes Adequeate Hydration: Yes Anesthesia Complications: No Block Receding Appropriately: Yes (block for post op analgesia; no motor block, pain well controlled) Patient on Ventilator: No
[2020-12-10] MEDS ORDERED: DOCUSATE SODIUM 100 MG CAP PO SCH (22:00)
[2020-12-11] MEDS: LACTATED RINGERS 1,000 ML IV SCH (01:24)
[2020-12-11] MEDS: ceFAZolin/NS 1 GM/50 ML 1 GM/50 ML BAG IV SCH ×2 (01:25→09:07)
[2020-12-11] MEDS: MORPHINE 2 MG/1 ML INJ IV PRN ×2 (01:26→10:25)
--- NOTE | 2020-12-11 08:14 | Progress Note ---
Assessment and Plan This is a 65 year old lady with Stage II right breast cancer upper inner quadrant, [id number] ER/IN positive. POD#1 right modified radical mastectomy, left total mastectomy and bilateral tissue medical parasitologist placement. No acute events overnight. 1. Pain in good control. 2. Bilateral chest incisions healing well. 3. OOB to hallway. 4. YFN drain education. 5. D/C planning for later today. Subjective Date of service: 12/11/20 Principal diagnosis: Right breast cancer upper inner quadrant Interval history: POD#1 right modified radical mastectomy, left total mastectomy and bilateral tissue medical parasitologist placement Objective - Constitutional Vitals: Vital Signs - 12hr 21 12/11/20 23:58 05:01 Temperature 98.0 F 98.3 F Pulse Rate 92 H 87 Respiratory 18 18 Rate Blood Pressure 116/69 94/53 O2 Sat by Pulse 100 99 Oximetry General appearance: Present: no acute distress - EENT Eyes: PERRL, EOM intact ENT: hearing intact, clear oral mucosa, dentition normal Ears: bilateral: normal - Neck Neck: supple, normal ROM - Respiratory Respiratory effort: normal - Breasts Breasts: other (whitney chest incisions c/d/i; skin well perfused; no hematoma; appropriate output from YFN drains) - Cardiovascular Rhythm: regular Extremities: no ischemia, pulses symmetrical, No edema, normal temperature, normal color, Full ROM - Gastrointestinal General gastrointestinal: Present: soft, non-tender, non-distended Rectal Exam: deferred - Genitourinary Female genitourinary: deferred - Integumentary Integumentary: clear, warm, dry - Musculoskeletal Musculoskeletal: strength equal bilaterally - Neurologic Neurologic: CNII-XII intact, moves all extremities, gait normal - Psychiatric Psychiatric: appropriate mood/affect, intact judgment & insight, memory intact, cooperative - Labs CBC & Chem 7: 12/05/20 09:05 12/05/20 09:05 Medications & Allergies - Medications Allergies/Adverse Reactions: Allergies clindamycin Adverse Reaction (Verified 12/04/20 15:30) Metallic taste Home Medications: Home Medications Medication Instructions Recorded Confirmed Last Taken Type Ascorbic Acid [Vitamin C] 1,000 mg PO DAILY 12/04/20 12/10/20 12/03/20 09:00 History Ergocalciferol(Vitamin D2)(Nf) 400 unit PO DAILY 12/04/20 12/10/20 12/03/20 09:00 History [Vitamin D (Nf)] Vit C/Vit D3/E/Zinc/Elderberry 1 each PO DAILY 12/04/20 12/10/20 12/03/20 09:00 History [Airborne Elderberry Gummy] Active Medications: Generic Name Dose Route Start Last Admin Trade Name Freq PRN Reason Stop Dose Admin Acetaminophen 650 mg 12/10/20 17:00 Acetaminophen 325 Mg Tab PO Q6H PRN Pain MILD(1-3)/Fever >100.5/MYERS Diphenhydramine HCl 25 mg 12/10/20 17:00 Diphenhydramine 25 Mg Cap PO Q8H PRN Itching Docusate Sodium 100 mg 12/10/20 22:00 Docusate Sodium 100 Mg Cap PO BID RANDY Fentanyl 50 mcg 12/10/20 11:18 Fentanyl 100 Mcg/2 Ml Inj IV 12/11/20 11:17 Q5MIN PRN Pain , Severe (7-10) Hydromorphone HCl 2 mg 12/10/20 17:00 Hydromorphone 2 Mg Tab PO Q6H PRN Pain , Severe (7-10) Lactated Ringer's 1,000 mls @ 125 mls/hr 12/10/20 17:00 12/11/20 01:24 Lactated Ringers IV 125 mls/hr DIRECT RANDY Administration Cefazolin Sodium 1 gm in 50 mls @ 100 mls/hr 12/10/20 17:00 12/11/20 01:55 Ancef/Ns 1 Gm/50 Ml IV Infused Q8H RANDY Infusion Protocol Metoclopramide HCl 10 mg 12/10/20 17:00 Metoclopramide 10 Mg Tab PO Q6H PRN Nausea And Vomiting Morphine Sulfate 2 mg 12/10/20 17:00 12/11/20 01:26 Morphine 2 Mg/1 Ml Inj IV 2 mg Q4H PRN Administration Pain, Moderate (4-6) Ondansetron HCl 4 mg 12/10/20 17:00 Ondansetron 4 Mg/2 Ml Inj IV Q8H PRN N/V unrelieved by Reglan Oxycodone/Acetaminophen 1 tab 12/10/20 17:00 Oxycodone /Acetaminophen 5-325mg Tab PO Q6H PRN Pain, Moderate (4-6) Sodium Chloride 10 ml 12/10/20 17:00 Sodium Chloride 0.9% 10 Ml Flush Syringe IV PRN PRN LINE FLUSH
[2020-12-11 16:28] VITALS: BP 114/54
--- NOTE | 2020-12-11 17:18 | Post Anesthesia Evaluation ---
- Post Anesthesia Evaluation Patient Participated: Yes Airway Patent: Yes Stable Respiratory Function: Yes Nausea/Vomiting: No Temp > 96.8F: Yes Pain Manageable: Yes Adequeate Hydration: Yes Anesthesia Complications: No Block Receding Appropriately: Yes Other Comments: POD1 s/p b/l mastectomy w/ tissue expanders. Evaluated prior to d/c.
== END 2020-12-11 17:35 | disposition home or self-care (01) ==
LOC: OR 09:21 → OB 16:20
PROVIDERS: ADMIT Surgery; ATTEND Surgery
DX: C50.211 Malignant neoplasm of upper-inner quadrant of right female breast (principal); Z20.828 Contact with and (suspected) exposure to other viral communicable diseases; Z80.3 Family history of malignant neoplasm of breast; Z80.41 Family history of malignant neoplasm of ovary; Z15.02 Genetic susceptibility to malignant neoplasm of ovary; Z79.899 Other long term (current) drug therapy
CPT/HCPCS: 15777; 19303; 19307; 19357; 36415; 38525; 64450; 71046; 76098; 80048; 85027; 88307; 88341; 88342; 93005; 96365; 96366; 96375; 96376; C1789; G0378; J0330; J0690; J1100; J1170; J1580; J2250; J2270; J2370; J2405; J2704; J2710; J3010; J7120; Q4128; Q9968; U0003; 88309

== ENCOUNTER 2021-01-13 10:08 | Day surgery (SDC) | payer BC, MEDICARE ==
[~2021-01-13 10:08] MED LIST changes: -ACETAMINOPHEN 325 MG TAB PO ONE; -BACITRACIN 50,000 UNIT VIAL IR ONE; -CELECOXIB 200 MG CAP PO NR; -FAMOTIDINE 20 MG TAB PO NR; -GABAPENTIN 300 MG CAP PO NR; -GENTAMICIN 40 MG/ML VIAL 2 ML IV ONE; -LACTATED RINGERS 1,000 ML IV SCH; -MAGNESIUM OXIDE 400 MG TAB PO ONE; -MIDAZOLAM 2 MG/2 ML INJ IV NR; -SCOPOLAMINE TRANSDERMAL PATCH 72 HR TD NR; -SODIUM CHLORIDE 0.9% IRR 1,500 ML BOTTLE IR ONE; -WATER FOR IRRIG STERILE 1,500 ML BOTTLE IR ONE; -ceFAZolin 1 GM VIAL IV ONE; -fentaNYL 100 MCG/2 ML INJ IV ONE
[2021-01-13] MEDS ORDERED: LACTATED RINGERS 1,000 ML ONE (12:55)
[2021-01-13] MEDS ORDERED: ONDANSETRON 4 MG/2 ML INJ IV PRN (13:27)
[2021-01-13] MEDS ORDERED: MAGNESIUM OXIDE 400 MG TAB PO NR (13:27)
[2021-01-13] MEDS ORDERED: ACETAMINOPHEN 325 MG TAB PO NR (13:27)
[2021-01-13] MEDS ORDERED: fentaNYL 100 MCG/2 ML INJ IV NR (13:27)
[2021-01-13] MEDS ORDERED: HYDROmorphone 1 MG/1 ML INJ IV PRN ×2 (13:27)
--- NOTE | 2021-01-13 13:28 | Anesthesia Day of Surgery ---
Anesthesia Day of Surgery - Day of Surgery Patient Examined: Yes Patient H&P Reviewed: Yes Patient is NPO: Yes
[2021-01-13] MEDS ORDERED: dexAMETHasone 20 MG/5 ML VIAL ONE ×2 (13:30→14:16)
[2021-01-13] MEDS ORDERED: BUPIVACAINE/PF (0.25%) 2.5 MG/ML 30 ML VIAL INFILTRATI ONE (13:30)
--- NOTE | 2021-01-13 13:30 | Anesthesia Consultation ---
Anesthesia Consult and Med Hx Date of service: 01/13/21 - Airway Anesthetic Teeth Evaluation: Crowns, Bridges ROM Head & Neck: Inadequate (Decreased ROM ?cervical HNP) Mental/Hyoid Distance: Adequate Mallampati Class: Class II Intubation Access Assessment: Probably Good - Pre-Operative Health Status ASA Pre-Surgery Classification: ASA2 Proposed Anesthetic Plan: General Nerve Block: ES - Pulmonary Hx Smoking: No Hx Respiratory Symptoms: No (+2FS) - Cardiovascular System Hx Cardia Arrhythmia: No Hx Heart Murmur: Yes - Central Nervous System Hx Neuromuscular Disorder: No Hx Psychiatric Problems: No - Gastrointestinal Hx Gastroesophageal Reflux Disease: Yes - Endocrine Hx Insulin Dependent Diabetes: No Hx Non-Insulin Dependent Diabetes: No Hx Thyroid Disease: No - Hematic Hx Anemia: No - Other Systems Hx Alcohol Use: No Hx Substance Use: No Hx Cancer: Yes Hx Obesity: No - Additional Comments Anesthesia Medical History Comments: Anesthetic Teeth Evaluation: Crowns, Bridges. ROM Head & Neck: Inadequate (Decreased neck ROM-? HNP). Mental/Hyoid Distance: Adequate. Mallampati Class: Class II. Intubation Access Assessment: Probably Good
[2021-01-13] MEDS ORDERED: NEOMY 40 MG/POLYMYXIN B 200,000 UNITS/ML (GU) AMPULE IR ONE ×3 (13:34→14:58)
[2021-01-13] MEDS ORDERED: MIDAZOLAM 2 MG/2 ML INJ IV NR (14:00)
[2021-01-13] MEDS ORDERED: CELECOXIB 200 MG CAP PO NR (14:00)
[2021-01-13] MEDS ORDERED: GABAPENTIN 300 MG CAP PO NR (14:00)
[2021-01-13] MEDS ORDERED: LACTATED RINGERS 1,000 ML IV SCH (14:00)
[2021-01-13] MEDS ORDERED: ePHEDrine SULFATE 50 MG/1 ML INJ ONE (14:03)
[2021-01-13] MEDS ORDERED: ONDANSETRON 4 MG/2 ML INJ ONE (14:16)
[2021-01-13] MEDS ORDERED: fentaNYL 100 MCG/2 ML INJ ONE ×2 (14:16→15:34)
[2021-01-13] MEDS ORDERED: PHENYLEPHRINE/NS 1,000 MCG/10 ML SYRINGE (OR USE) IV ONE (14:16)
[2021-01-13] MEDS ORDERED: LIDOCAINE MPF (2%) 20 MG/1 ML VIAL 5 ML ONE (14:16)
[2021-01-13] MEDS ORDERED: ROCURONIUM 50 MG/5 ML INJ IV ONE (14:16)
[2021-01-13] MEDS ORDERED: propofoL 200 MG/20 ML VIAL IV ONE (14:17)
[2021-01-13] MEDS ORDERED: SODIUM CHLORIDE 0.9% IRRIG SOLN 3000 ML IR ONE (15:00)
[2021-01-13] MEDS ORDERED: SODIUM CHLORIDE 0.9% IRR 1,500 ML BOTTLE IR ONE (15:01)
[2021-01-13] MEDS ORDERED: SUGAMMADEX SODIUM 200 MG/2 ML VIAL IV ONE (15:27)
--- NOTE | 2021-01-13 15:55 | Operative Report ---
PREOPERATIVE DIAGNOSES: 1. Suspected infection, right breast. 2. Breast cancer, personal history. 3. Acquired deformity of breasts. POSTOPERATIVE DIAGNOSES: 1. Suspected infection, right breast. 2. Breast cancer, personal history. 3. Acquired deformity of breasts. PROCEDURES: Washout of bilateral breasts with removal of tissue expanders and right-sided ADM. SURGEON: Dr. Mukesh Phan. SHIP ERECTOR: None. ANESTHESIA: General. DRAINS: YFN x 2. SPECIMENS: Cultures obtained from right breast deep space. ESTIMATED BLOOD LOSS: 25 mL. COMPLICATIONS: None. INDICATIONS: The patient is a 65-year-old woman who underwent immediate bilateral breast reconstruction with bilateral tissue expanders and acellular dermal matrix following bilateral mastectomy performed by Dr. Olivier at [facility]. She had developed cellulitis involving the right breast that was persistent despite antibiotic coverage. We then had her consult with Dr. Ram from an infectious disease and she is currently on IV vancomycin. The patient still continues to complain of chills and fever as well as pain involving right greater than left breast and she is requesting removal of both implants bilaterally. She understands that we would need to wait approximately 6 months before initiating a secondary attempt of reconstructing her breast. She is not interested in any salvage attempts or washout of the right breast and simply once the tissue expanders removed. She understands following the procedure, she will have a flat contour within the unpredictable results in terms of symmetry and contour regularities. The risks of the surgery, nature and technical aspects were discussed fully including but not limited to postop infection, bleeding, pronounced scarring, hematoma, seroma formation, deformity of the chest, asymmetry, pain, paresthesias or numbness, failure to achieve anticipated goals, delayed healing, need for revision or future surgery. DESCRIPTION OF PROCEDURE: The patient was brought to the operating room and placed on the operating table. She was induced with general anesthesia prior to which IV antibiotics and pneumatic compression boots for DVT prophylaxis were utilized. The chest was prepped with DuraPrep and draped in the usual sterile fashion. The incision centrally was opened up over approximately 6 cm length on each breast, I started with the left uninvolved breast. The incision was carried down through the subcutaneous tissue plane until the deep ADM closure was encountered. The Vicryl sutures were removed and the tissue recordak operator removed from the deep pocket. The left tissue recordak operator pocket was pristine with no evidence of infection. It was radially scored with electrocautery and irrigated out with copious amounts of irrigant utilizing pulse lavage technique. A #10 flat YFN drain was placed exiting through a separate inferior stab incision and sewn in place with 2-0 silk. Closure was facilitated on the side with a 2-0 Vicryl suture reapproximating the ADM at the deep tissue level. Of note, the ADM was clearly well incorporated, actually on both sides to minimize the risk of bleeding, I elected not remove the ADM on the left side for it was clearly well incorporated. The deep dermis was then closed with a running 3-0 Monocryl suture and then a subcuticular closure facilitated with 3-0 running Monocryl sutures. Dermabond skin glue was applied. Next, attention was turned towards removal of the right tissue recordak operator on the suspected infected side. Again, a 6 cm length of the incision was opened up with a Metzenbaum scissor and the deep pocket was entered. Tissue recordak operator was removed and this pocket had some additional inflammation of the capsule, but no nic pus or clear evidence of any infection was noted. Deep cultures were taken for aerobic and anaerobic identification and sent to the lab. The pocket was irrigated with copious amounts of irrigant utilizing pulse lavage technique. On this side, even though the ADM was well incorporated, I did elect to remove it since this was clearly the involved side. There was some raw surface oozing that was dealt with using electrocautery as well as 2 bottles of Yaritza hemostatic powder. A 10 flat YFN drain was also placed on this side and closure facilitated likewise with 2-0 Vicryl at the level of the deep dermis, 2-0 Vicryl at the level of the subcutaneous deep tissue and pectoralis muscle, 3-0 Monocryl at the level of the deep dermis and a running subcuticular 3-0 Monocryl stitch and Dermabond skin glue. The patient tolerated the procedure well and was extubated and transferred to the recovery area in stable condition. No complications sustained. JOB# [id number] /MIKA
[2021-01-13] MEDS ORDERED: HYDROcodone/ACETAMINOPHEN 7.5-325MG TAB PO PRN (16:00)
[2021-01-13] MEDS ORDERED: HEPARIN 10,000 UNIT/1 ML VIAL IV ONE (17:00)
[2021-01-13] MEDS ORDERED: HEPARIN 10,000 UNITS/10 ML VIAL IV ONE (17:23)
[2021-01-13 18:04] VITALS: BP 145/73
== END 2021-01-13 18:35 | disposition home or self-care (01) ==
LOC: OR 10:08
PROVIDERS: ATTEND Plastic Surgery
DX: N61.0 Mastitis without abscess (principal); N64.89 Other specified disorders of breast; K21.9 Gastro-esophageal reflux disease without esophagitis; M19.90 Unspecified osteoarthritis, unspecified site; Z85.3 Personal history of malignant neoplasm of breast; Z90.13 Acquired absence of bilateral breasts and nipples; Z90.710 Acquired absence of both cervix and uterus; Z79.899 Other long term (current) drug therapy; Z88.8 Allergy status to other drugs, medicaments and biological substances; Z98.890 Other specified postprocedural states
CPT/HCPCS: 11971; 87075; 87076; 87116; 87186; A4217; J1100; J2250; J2370; J2405; J2704; J3010; J7120; 64450; J0690; J1642

== ENCOUNTER 2021-03-26 12:05 | Outpatient (CLI) | payer BC, MEDICARE ==
[2021-03-26 12:38] LABS: Hematocrit 35.6 % (30.3-42.9); Hemoglobin 11.5 gm/dl (10.1-14.3); Mean Corpuscular HGB Conc 32 % (30-34); Mean Corpuscular Volume 72 fl (79-97); Platelet Count 194 K/mm3 (140-440); Red Blood Count 4.94 M/mm3 (3.65-5.03); Red Cell Distribution Width 14.7 % (13.2-15.2)
[2021-03-26 12:54] LABS: Alanine Aminotransferase 17 units/L (7-56); Albumin 4.3 g/dL (3.9-5); Blood Urea Nitrogen 15 mg/dL (7-17); Calcium 9.6 mg/dL (8.4-10.2); Hemolysis Index 4
[2021-03-26 12:55] LABS: BUN/Creatinine Ratio 30
== END 2021-03-26 12:06 | disposition home or self-care (01) ==
LOC: LAB 12:05
PROVIDERS: ATTEND Internal Medicine Hematology & Oncology
DX: C50.411 Malignant neoplasm of upper-outer quadrant of right female breast (principal)
CPT/HCPCS: 36415; 80053; 85027

== ENCOUNTER 2021-12-03 07:27 | Outpatient (CLI) | payer MEDICARE, OTHER ==
--- NOTE | 2021-12-03 11:30 | PET Report ---
PET/CT HISTORY: C50.411. Restaging of breast cancer TECHNIQUE: The patient's fasting blood glucose was 110. The patient weighed 169 lbs. The patient w as injected with 13.5 mCi of FDG in the left hand at 0843 hours and imaging was started at 0935 hours . The patient was imaged from the skull base to the thighs. All CT scans at this location are perfor med using CT dose reduction for ALARA by means of automated exposure control. Images were reviewed on a workstation. COMPARISON: 09/25/2020 PET/CT. 10/07/2020 MRI abdomen FINDINGS: IMAGED BRAIN: Physiologic FDG uptake. NECK: Physiologic FDG uptake. CHEST WALL: Physiologic FDG uptake. 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 No new chest wall mass or adenopathy. MEDIASTINUM: Physiologic FDG uptake. LUNGS: Physiologic FDG uptake. No suspicious pulmonary lesion. HEPATOBILIARY: Physiologic FDG uptake. Stable small hepatic cysts. PANCREAS: Physiologic FDG uptake. SPLEEN: Physiologic FDG uptake. KIDNEYS/BLADDER: Physiologic FDG uptake. Stable nonobstructing right nephrolithiasis and 3.4 cm left renal cyst. ADRENAL GLANDS: Physiologic FDG uptake. GI/MESENTERY: Physiologic FDG uptake. PELVIC VISCERA: Physiologic FDG uptake. Stable hysterectomy changes. LYMPH NODES: Physiologic FDG uptake. OSSEOUS STRUCTURES: Physiologic FDG uptake. ADDITIONAL FINDINGS: None. IMPRESSION: Negative PET CT. No evidence for disease recurrence or metastasis. Signer Name: Bob Rausch Jr, MD Signed: 12/03/2021 11:26 AM Workstation Name: [id number]
== END 2021-12-03 07:28 | disposition home or self-care (01) ==
LOC: PET 07:27
PROVIDERS: ATTEND Internal Medicine Hematology & Oncology
DX: C50.411 Malignant neoplasm of upper-outer quadrant of right female breast (principal)
CPT/HCPCS: 78815; 82962; A9552